=== PATIENT | female | born 1995 ===

== ENCOUNTER → 2018-09-05 | Outpatient (CLI) | payer OTHER ==
[~2018-09-05] MED LIST: PRENATAL 19 TA1 EAC1 PO
== END | disposition home or self-care (01) ==
LOC: PRENATAL 13:38
DX: O36.8132 Decreased fetal movements, third trimester, fetus 2 (principal)

== ENCOUNTER 2018-09-11 00:07 | Outpatient (CLI) | payer OTHER ==
[2018-09-11] MEDS ORDERED: PRENATAL 19 TA1 EAC1 PO (00:33)
== END 2018-09-11 10:18 | disposition home or self-care (01) ==
LOC: OBS/DEL 00:07
DX: O47.1 False labor at or after 37 completed weeks of gestation (principal); Z34.03 Encounter for supervision of normal first pregnancy, third trimester